=== PATIENT | female | born 1995 | race African-American/Black ===

== ENCOUNTER 2017-01-15 09:19 | Emergency (ER) | payer OTHER ==
[~2017-01-15] VITALS: Ht 167.6 cm; Wt 73.0 kg
[2017-01-15 10:59] VITALS: BP 116/63
[2017-01-15] MEDS ORDERED: MUPI15CR TP (11:58)
[2017-01-15] MEDS ORDERED: SULF1TAB24 PO (11:58)
--- NOTE | 2017-01-15 11:59 | PHYS DOC ---
Past Medical History Past Medical History: No Pertinent History Past Surgical History: No Surgical History Alcohol Use: None Drug Use: None Adult General Chief Complaint Chief Complaint: SKIN PROBLEM HPI HPI Patient is a 21 year old female with no significant medical history who presents with an infected tattoo to the right lower extremity. Patient states she had a tattoo done 2 days ago and noticed redness yesterday. Patient denies any fever or drainage from the area. Review of Systems Review of Systems Constitutional: Denies fever or chills [] Musculoskeletal: Denies back pain or joint pain [] Integument: infected tattoo to the right lower extremity. Neurologic: Denies headache, focal weakness or sensory changes [] [] Allergies Allergies Allergies Coded Allergies Type Severity Reaction Last Updated Verified No Known Drug Allergies 06/29/13 No Physical Exam Physical Exam Constitutional: Well developed, well nourished, no acute distress, non-toxic appearance. [] skin: Right lateral thigh with Otis tatoo with mild cellulitis. The area is warm. There is no fluctuance to the area. Extremities: No tenderness, no cyanosis, no clubbing, ROM intact, no edema. [] Neurologic: Alert and oriented X 3, normal motor function, normal sensory function, no focal deficits noted. [] Psychologic: Affect normal, judgement normal, mood normal. [] Current Patient Data Vital Signs Vital Signs Date Time Temp Pulse Resp B/P (MAP) Pulse Ox O2 Delivery O2 Flow Rate FiO2 01/15/17 10:59 98.4 98 16 99 Room Air 98.4 EKG EKG [] Radiology/Procedures Radiology/Procedures [] Course & Med Decision Making Course & Med Decision Making Pertinent Labs and Imaging studies reviewed. (See chart for details) Patient has an infected tattoo to the right thigh. She was given tetanus and discharged with Bactrim and Bactroban ointment. She is to follow-up with her PCP in 1-2 weeks. She was provided wound care instructions and return precautions. Kyleighon Disclaimer Selene Disclaimer This electronic medical record was generated, in whole or in part, using a voice recognition dictation system. Departure Departure Impression: Primary Impression: Cellulitis of right lower extremity without foot Disposition: 01 HOME, SELF-CARE Condition: STABLE Referrals: UNKNOWN PCP NAME (PCP) follow up with your doctor in 1-2 weeks Patient Instructions: Cellulitis, [id number] Additional Instructions: You were seen for an infected tattoo. Keep the area clean and dry. Apply the prescription cream provided to the area as prescribed. Take the prescribed antibiotic by mouth until completed. Follow-up with your doctor in 1-2 weeks. Come back to the ED if symptoms worsen. Scripts Sulfamethoxazole/Trimethoprim (BACTRIM DS TABLET) 1 Each Tablet 1 TAB PO BID, #20 TAB Prov: OTIS DILL APRN 01/15/17 Mupirocin Calcium (BACTROBAN CREAM) 15 Gm Cream..g. 1 GAUTAM TP TID, #30 GM Prov: OTIS DILL APRN 01/15/17 OTIS DILL APRN Jan 15, 2017 11:59
[2017-01-15] MEDS ORDERED: DIPHTH,PERTUSS(ACELL),TET TOX 0.5 ML DISP.SYRIN. VAX IM ONE (12:00)
== END 2017-01-15 12:11 | disposition home or self-care (01) ==
LOC: ER 09:19
DX: L03.115 Cellulitis of right lower limb (principal)
CPT/HCPCS: 90471; 90715; 99283-25